=== PATIENT | female | born 1970 | race Caucasian/White ===

== ENCOUNTER 2017-04-23 10:15 | Day surgery (SDC) | payer OTHER ==
[~2017-04-23 10:15] MED LIST: Buffered Lidocaine 0.9% SYRIN* 5 ML/SYR SYRINGE INTRADERM ONE; Buffered Lidocaine 0.9% SYRIN* 5 ML/SYR SYRINGE ONE; Bupivacaine 0.25% SDV* 30 ML ONE; Famotidine IV* 10 MG/ML 2 ML (20 mg) IV ONE; Famotidine IV* 10 MG/ML 2 ML (20 mg) ONE
[2017-04-23] MEDS ORDERED: ceFAZolin 2 GM PREMIX (*) 2 GM/50 ML BAG IVPB ONE (10:27)
[2017-04-23] MEDS ORDERED: KETAMINE HCL* 50 MG/ML 10 ML VIAL ONE (10:47)
[2017-04-23] MEDS ORDERED: Dexamethasone IV* 4 MG/ML 1 ML (4 MG) ONE (10:47)
[2017-04-23] MEDS ORDERED: fentaNYL* 50 MCG/ML 2 ML VIAL (100 MCG VIAL) ONE (10:47)
[2017-04-23] MEDS ORDERED: Ketorolac INJ* 30 MG/ML 1 ML VIAL ONE (10:47)
[2017-04-23] MEDS ORDERED: Propofol* 10 MG/ML 20 ML BTL IV PUSH ONE (10:47)
[2017-04-23] MEDS ORDERED: Ondansetron INJ* 2 MG/ML VIAL ONE (10:47)
[2017-04-23] MEDS ORDERED: Lidocaine 2% PF * 5 ML VIAL ONE (10:47)
[2017-04-23] MEDS ORDERED: Midazolam* 1 MG/ML 5 ML VIAL (5 MG) ONE (10:48)
[2017-04-23] MEDS ORDERED: EPHEDrine (Pressors)* 50 MG/ML VIAL ONE (11:43)
[2017-04-23] MEDS ORDERED: fentaNYL* 50 MCG/ML 2 ML VIAL (100 MCG VIAL) IV PRN (12:11)
[2017-04-23] MEDS ORDERED: Ondansetron INJ* 2 MG/ML VIAL IV PRN (12:11)
[2017-04-23] MEDS ORDERED: oxyCODONE/Acetamin 5/325 MG* TAB PO PRN (12:11)
[2017-04-23 13:20] VITALS: BP 112/54
--- NOTE | 2017-04-24 02:09 | OP ---
OPERATIVE REPORT: DATE OF OPERATION: 04/23/17 - [place] DATE OF : 74 SURGEON: John Young MD TICKETING AGENT: DENA Romeo An tax accounting assistant was needed for entirety of the procedure to aid in positioning of the arm and retraction. ANESTHESIOLOGIST: Dr. Ferrari. ANESTHESIA: General. PRE-OP DIAGNOSES: 1. Left carpal tunnel syndrome. 2. Left cubital tunnel syndrome. POST-OP DIAGNOSES: 1. Left carpal tunnel syndrome. 2. Left cubital tunnel syndrome. OPERATIVE PROCEDURES: 1. Left open carpal tunnel release. 2. Left in situ cubital tunnel release. INDICATIONS: Augustina is 47. She has had progressive symptoms. She has had nonoperative treatment. We talked about risks and benefits. She wanted to proceed with surgery. ESTIMATED BLOOD LOSS: 2 mL. COMPLICATIONS: None. FINDINGS: As expected. DESCRIPTION OF PROCEDURE: Augustina was seen in the preoperative holding area. The correct side, site, and procedure were identified. We came back to the operating room where anesthesia was induced. The arm was prepped and draped in the usual fashion, we had a time out. The arm was exsanguinated with the Esmarch and the tourniquet inflated to 250 mmHg. I then made a 2 to 3 cm incision in the standard location for an open carpal tunnel release. Dissection was carried down through the subcutaneous tissue and palmar fascia. Transverse carpal ligament was identified and released just off the radial aspect of the hook of the hamate. The release was completed distally and then taken proximally where the fascia and subcutaneous tissue was released and retracted volarly and ulnarly with the Summer retractor. Under direct visualization I then released the remainder of the transverse carpal ligament and the distal antebrachial fascia to a level several centimeters past the wrist flexion crease with the tenotomy scissors. Checked the release, everything looked good proximally and distally, so we went ahead and irrigated out the wounds. Skin was closed with 4-0 nylon suture. We then turned our attention to the elbow. A curvilinear incision was made centered over the Donis's ligament and extended proximally and distally in line with the ulnar nerve. The dissection was carried down through the subcutaneous tissue with the Bovie proximally and distally with the tenotomy scissors. The decompression began just at the proximal aspect of Donis's ligament. This was carried out proximally well past 8 cm proximal to the medial epicondyle. I then came distally and released the Ingram's ligament, the superficial FCU fascia. I split the two heads of the FCU muscle and then the subfascial layer was released. All the adhesions were released. Once everything was nicely decompressed, we flexed and extended the elbow. The arm did not subluxate, so we went ahead and irrigated out the wound. Subcutaneous tissue was reapproximated with 3-0 Vicryl. Skin was closed with 4-0 nylon. The wounds were infiltrated with 0.25% plain Marcaine. Wounds were dressed with Xeroform, 4x4, sterile Webril, and ABD at the elbow and Mt bandages. The tourniquet was deflated. She was then taken to the recovery room in stable condition. [id number]/CPS #: [id number]
== END 2017-04-23 13:45 | disposition home or self-care (01) ==
LOC: OREAST 10:15
PROVIDERS: ATTEND Orthopaedic Surgery Hand Surgery
DX: G56.02 Carpal tunnel syndrome, left upper limb (principal); G56.22 Lesion of ulnar nerve, left upper limb; F17.290 Nicotine dependence, other tobacco product, uncomplicated; F41.8 Other specified anxiety disorders
CPT/HCPCS: J0690; J1100; J1885; J2250; J2405; J2704; J3010

== ENCOUNTER 2019-10-26 09:40 | Emergency (ER) | payer OTHER ==
[2019-10-26 10:35] VITALS: BP 116/71
== END 2019-10-26 11:10 | disposition home or self-care (01) ==
LOC: UCCORT 09:40